=== PATIENT | female | born 1960 | race Caucasian/White ===

== ENCOUNTER 2017-10-25 18:46 | Emergency (ER) | payer BC ==
[2017-10-25] MEDS ORDERED: RX INFO: IV CONTRAST WAS GIVEN 1 EACH MISC MISCELLANE PRN (20:34)
--- NOTE | 2017-10-25 20:44 | ED ---
General Adult HPI - General Source: patient, RN notes reviewed Mode of arrival: ambulatory Limitations: no limitations <Quan Vanegas - Last Filed: 10/25/17 20:37> <Solomon Sanchez - Last Filed: 10/25/17 21:43> - General Chief complaint: Skin/Abscess/Foreign Body Stated complaint: Facial swelling Time Seen by Provider: 10/25/17 18:55 - History of Present Illness Initial comments: This is a 57-year-old female presents emergency Department with redness and swelling in the infraorbital region on her left side. Patient states it started 2 days ago she went to see her dentist and dentist and x-rays and gave her 2 antibiotics Flagyl and amoxicillin but the redness and swelling of gotten worse. Now it is on the left side of her nose proximally. Patient states touching that area is extremely tender. Patient denies any tooth pain. However she does believe she has some tender lymph nodes anterior cervical area on the left. Patient denies any fever or chills. Patient denies any visual disturbance or pain with movement of the eyes. Patient denies any trauma to that area. Patient denies any sinus problems recently. Patient denies symptoms that are similar (Quan Vanegas) - Related Data Home Medications Medication Instructions Recorded Confirmed Ibuprofen [Motrin] 400 mg PO Q8HR PRN 10/25/17 10/25/17 Penicillin V Potassium [Pen Vee K] 500 mg PO Q6H 10/25/17 10/25/17 metroNIDAZOLE [Flagyl] 500 mg PO QID 10/25/17 10/25/17 Allergies Allergy/AdvReac Type Severity Reaction Status Date / Time No Known Allergies Allergy Verified 10/25/17 20:06 Review of Systems ROS Other: All systems not noted in ROS Statement are negative. <Quan Vanegas - Last Filed: 10/25/17 20:37> ROS Other: All systems not noted in ROS Statement are negative. <Solomon Sanchez - Last Filed: 10/25/17 21:43> ROS Statement: Those systems with pertinent positive or pertinent negative responses have been documented in the HPI. Past Medical History Past Medical History: No Reported History History of Any Multi-Drug Resistant Organisms: None Reported Past Surgical History: Section, Hysterectomy Past Psychological History: No Psychological Hx Reported Smoking Status: Never smoker Past Alcohol Use History: None Reported Past Drug Use History: None Reported <Quan Vanegas - Last Filed: 10/25/17 20:37> General Exam Limitations: no limitations <Quan Vanegas - Last Filed: 10/25/17 20:37> <Solomon Sanchez - Last Filed: 10/25/17 21:43> - General Exam Comments Initial Comments: GENERAL: Patient is well-developed and well-nourished. Patient is nontoxic and well- hydrated and is in mild distress. ENT: Neck is soft and supple. No significant lymphadenopathy is noted. Oropharynx is clear. Moist mucous membranes. Neck has full range of motion without eliciting any pain. EYES: The sclera were anicteric and conjunctiva were pink and moist. Extraocular movements were intact and pupils were equal round and reactive to light. Eyelids were unremarkable. SKIN: Patient has infraorbital swelling and redness and tenderness on the left side of her face. There area of redness is on the medial aspect of her proximal nose as well. NEUROLOGIC: Patient is alert and oriented x3. Cranial nerves II through XII are grossly intact. Motor and sensory are also intact. Normal speech, volume and content. Symmetrical smile. MUSCULOSKELETAL: Normal extremities with adequate strength and full range of motion. LYMPHATICS: No significant lymphadenopathy is noted PSYCHIATRIC: Normal psychiatric evaluation. Normal interpersonal interactions appears functionally intact in deals appropriately with others. No signs of depression. No signs of anxiety. No delusions. No hallucinations. (Quan Vanegas) Vital Signs 10/25/17 18:52 Temperature 98.4 F Pulse Rate 84 Respiratory 18 Rate Blood Pressure 134/90 O2 Sat by Pulse 97 Oximetry Medical Decision Making <Quan Vanegas - Last Filed: 10/25/17 20:37> - Lab Data Result diagrams: 10/25/17 20:40 10/25/17 20:40 <Solomon Sanchez - Last Filed: 10/25/17 21:43> - Medical Decision Making This patients care will be taken over by Dr. Jack (Quan Vanegas) Patient reevaluated at the time sign out. Laboratory studies and computed tomography scan pending. These were reviewed, normal white blood cell count, normal electrolytes. Computed tomography scan shows preseptal periorbital cellulitis. No abscess collection. No signs of orbital cellulitis. No underlying infection. Patient reexamined, resting comfortably, vital signs stable. She has no dental pain. Patient is given option for admission for IV antibiotics or trial of single dose of IV antibiotics and adjustment of her outpatient oral antibiotics. She will prefer to be discharged at this time, keeping a close eye on this infection. She will return with any worsening swelling, development of fever, or change in her symptoms. Diagnosis: Left facial and periorbital cellulitis, erysipelas (Solomon Sanchez) - Lab Data Lab Results 10/25/17 10/25/17 10/25/17 Range/Units 20:40 20:40 20:40 WBC 6.4 (3.8-10.6) k/uL RBC 4.56 (3.80-5.40) m/uL Hgb 13.4 (11.4-16.0) gm/dL Hct 41.4 (34.0-46.0) % MCV 90.9 (80.0-100.0) fL MCH 29.4 (25.0-35.0) pg MCHC 32.3 (31.0-37.0) g/dL RDW 12.5 (11.5-15.5) % Plt Count 174 (150-450) k/uL Neutrophils % 46 % Lymphocytes % 38 % Monocytes % 9 % Eosinophils % 4 % Basophils % 1 % Neutrophils # 2.9 (1.3-7.7) k/uL Lymphocytes # 2.4 (1.0-4.8) k/uL Monocytes # 0.6 (0-1.0) k/uL Eosinophils # 0.2 (0-0.7) k/uL Basophils # 0.1 (0-0.2) k/uL Sodium 138 (137-145) mmol/L Potassium 3.9 (3.5-5.1) mmol/L Chloride 101 (98-107) mmol/L Carbon Dioxide 31 H (22-30) mmol/L Anion Gap 6 mmol/L BUN 14 (7-17) mg/dL Creatinine 0.76 (0.52-1.04) mg/dL Est GFR (MDRD) Af Amer >60 (>60 ml/min/1.73 sqM) Est GFR (MDRD) Non-Af >60 (>60 ml/min/1.73 sqM) Glucose 99 (74-99) mg/dL Plasma Lactic Acid Manjeet 0.8 (0.7-2.0) mmol/L Calcium 10.0 (8.4-10.2) mg/dL Total Bilirubin 0.3 (0.2-1.3) mg/dL AST 27 (14-36) U/L ALT 37 (9-52) U/L Alkaline Phosphatase 77 (38-126) U/L Total Protein 7.7 (6.3-8.2) g/dL Albumin 4.3 (3.5-5.0) g/dL Disposition <Quan Vanegas - Last Filed: 10/25/17 20:37> Time of Disposition: 21:42 <Solomon Sanchez - Last Filed: 10/25/17 21:43> Clinical Impression: Erysipelas, Periorbital cellulitis of left eye Disposition: HOME SELF-CARE Condition: Good Instructions: Cellulitis (ED) Additional Instructions: Please return to the emergency department with worsening erythema or swelling, or development of fever. Referrals: None,Stated [Primary Care Provider] - 1-2 days Cely Mabry MD [REFERRING] - 1-2 days
[2017-10-25 20:55] LABS: Basophils # (A) 0.1 k/uL (0-0.2); Basophils % (A) 1 %; Eosinophils # (A) 0.2 k/uL (0-0.7); Eosinophils % (A) 4 %; HCT 41.4 % (34.0-46.0); HGB 13.4 gm/dL (11.4-16.0); Lymphocytes # (A) 2.4 k/uL (1.0-4.8); Lymphocytes % (A) 38 %; MCH 29.4 pg (25.0-35.0); MCHC 32.3 g/dL (31.0-37.0); MCV 90.9 fL (80.0-100.0); Mean Platelet Volume 8.2; Monocytes # (A) 0.6 k/uL (0-1.0); Monocytes % (A) 9 %; Neutrophils # (A) 2.9 k/uL (1.3-7.7); Neutrophils % (A) 46 %; Platelet Count 174 k/uL (150-450); RBC 4.56 m/uL (3.80-5.40); RDW 12.5 % (11.5-15.5); WBC 6.4 k/uL (3.8-10.6)
[2017-10-25 21:06] LABS: ALT 37 U/L (9-52); AST 27 U/L (14-36); Albumin 4.3 g/dL (3.5-5.0); Alkaline Phosphatase 77 U/L (38-126); Anion Gap 6 mmol/L; Blood Urea Nitrogen 14 mg/dL (7-17); Carbon Dioxide 31 mmol/L (22-30); Chloride 101 mmol/L (98-107); Glucose 99 mg/dL (74-99); Potassium 3.9 mmol/L (3.5-5.1); Sodium 138 mmol/L (137-145); Total Bilirubin 0.3 mg/dL (0.2-1.3); Total Protein 7.7 g/dL (6.3-8.2)
--- NOTE | 2017-10-25 21:13 | CT ---
EXAMINATION TYPE: CT facial bones w con DATE OF EXAM: 10/25/2017 COMPARISON: NONE HISTORY: Swelling/redness to left infraorbital area. CT DLP: 636.4 mGycm Automated exposure control for dose reduction was used. CONTRAST: CT scan of the facial bones is performed with IV Contrast, patient injected with 100 mL of Omnipaque 300. TECHNIQUE: CT scan of the sinuses is performed without contrast, axial images are obtained, coronal r eformatted images are also reviewed. FINDINGS: There is left periorbital preseptal soft tissue swelling extending from the medial canthus bilaterall y to the level of lacrimal gland. There is no focal fluid collection to suggest abscess. No post sept al soft tissue swelling is seen. Extraconal and intraconal fat are maintained. Optic nerves and extra ocular muscles are symmetric. Orbits maintain a normal rounded configuration. Lenses are in place. Concepcion perior ophthalmic veins are unremarkable. There is extension of the soft tissue swelling over the lef t maxillary region to measure 9 mm on the left in comparison to 7 mm on the right. Extension inferior ly to the level of maxilla is noted. Again no focal fluid collection is seen. Nonenlarged submental a nd submandibular lymph nodes are seen the largest on the left measuring 7 mm in short axis, likely re active. The paranasal sinuses including the frontal, ethmoid, sphenoid, and maxillary sinuses bilaterally are well-aerated without abnormal opacification. The ostiomeatal complex is patent bilaterally on the c oronal images. There is mild rightward anterior nasal septal deviation. 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 Visualized portion of mastoid air cells show no abnormal opacification. IMPRESSION: 1. Left preseptal periorbital and infraorbital cellulitis. No focal abscess or post septal inflammato ry change. Orbits are symmetric. 2. The sinuses are clear and the ostiomeatal complex is patent bilaterally.
[2017-10-25] MEDS ORDERED: cefTRIAXone IN SWFI 1,000 MG/10 ML SYRINGE IVP STA (21:38)
[2017-10-25 22:59] VITALS: BP 128/70; PULSE 77; RESP 18; TEMP 98.2
== END 2017-10-25 22:45 | disposition home or self-care (01) ==
LOC: EC 18:46
DX: A46 Erysipelas (principal); L03.213 Periorbital cellulitis
CPT/HCPCS: 36415; 80053; 83605; 85025; 87040; 70487; 99284; 96374; J0696; Q9967